=== PATIENT | female | born 1995 | race American Indian/Alaskan Native ===

== ENCOUNTER 2018-02-27 18:18 | Emergency (ER) | payer SELFPAY ==
[2018-02-27 18:33] VITALS: BP 111/63
== END 2018-02-27 22:10 | disposition left against medical advice (07) ==
LOC: ED 18:18
DX: O20.9 Hemorrhage in early pregnancy, unspecified (principal); Z53.21 Procedure and treatment not carried out due to patient leaving prior to being seen by health care provider